=== PATIENT | male | born 2000 | race Hispanic/Latino ===

== ENCOUNTER 2021-07-22 13:52 | Emergency (ER) | payer SELFPAY ==
[2021-07-22] MEDS ORDERED: PROPOFOL 20 ML ONE (15:33)
[2021-07-22] MEDS ORDERED: Ondansetron PF 4 MG/2 ML Vial ONE (16:07)
== END 2021-07-22 16:48 | disposition home or self-care (01) ==
LOC: CSHERS 13:52
DX: S43.015A Anterior dislocation of left humerus, initial encounter (principal); F17.290 Nicotine dependence, other tobacco product, uncomplicated; X50.0XXA Overexertion from strenuous movement or load, initial encounter; Y92.89 Other specified places as the place of occurrence of the external cause; Y99.0 Civilian activity done for income or pay
CPT/HCPCS: 23650; 96374; J2405; J2704